=== PATIENT | female | born 1995 | race Caucasian/White ===

== ENCOUNTER 2017-05-08 22:39 | Emergency (ER) | END 2017-05-09 03:26 | disposition left against medical advice (07) ==

== ENCOUNTER 2018-01-12 23:55 | Outpatient (CLI) | END 2018-01-13 06:22 | disposition home or self-care (01) ==

== ENCOUNTER 2018-07-17 22:07 | Emergency (ER) | payer OTHER ==
[~2018-07-17] VITALS: Wt 86.5 kg
[2018-07-17 22:11] VITALS: BP 126/65; PULSE 89; RESP 19
--- NOTE | 2018-07-17 22:52 | ERD ---
ER Documentation Chief Complaint Chief Complaint BIB SELF, CC: LEFT BREAST REDNESS AND RASH / BUG BITE HPI 23-year-old female presents with complaint of itchiness on her left breast. States that she was breast-feeding her child when she felt a sting and she thinks some type of bug bit her but she is unsure exactly what kind. Denies any pain. Has not taken any treatments. Denies fevers, abdominal pain, nausea, vomiting, diarrhea. Denies past medical history. Denies allergies. Denies medications. Denies surgeries. Denies alcohol, tobacco, drug use. Up to date on vaccines. ROS All systems reviewed and are negative except as per history of present illness. Medications Home Meds No Active Prescriptions or Reported Meds Allergies Allergies: Coded Allergies: No Known Allergy (Unverified , 01/13/18) FmHx Family History: No diabetes, No coronary disease, No other Physical Exam Vitals Vital Signs Date Temp Pulse Resp B/P (MAP) Pulse Ox O2 O2 Flow FiO2 Time Delivery Rate 07/17/18 98.3 89 19 126/65 100 22:11 (85) Physical Exam Const: No acute distress Head: Atraumatic Eyes: Normal Conjunctiva ENT: Normal External Ears, Nose and Mouth. Neck: Full range of motion. No meningismus. Resp: Clear to auscultation bilaterally Cardio: Regular rate and rhythm, no murmurs Abd: Soft, non tender, non distended. Normal bowel sounds Skin: Small area of mild erythema noted over left breast with no tenderness to palpation or masses noted. Back: No midline or flank tenderness Ext: No cyanosis, or edema Neur: Awake and alert Psych: Normal Mood and Affect Procedures/MDM 23-year-old female presents with complaint of itchiness on her left breast. States that she was breast-feeding her child when she felt a sting and she thinks some type of bug bit her but she is unsure exactly what kind. Denies any pain. Has not taken any treatments. Denies fevers, abdominal pain, nausea, vomiting, diarrhea. Denies past medical history. Denies allergies. Denies medications. Denies surgeries. Denies alcohol, tobacco, drug use. Up to date on vaccines. Low suspicion for allergic reaction, anaphylaxis, breast abscess, infection, or other emergent condition. Patient was offered Benadryl but declined.. Patient discharged with strict ER precautions. Patient advised to follow up with PMD. All questions answered at discharge. Departure Diagnosis: Primary Impression: Bug bite Encounter type: initial encounter Qualified Codes: W57.XXXA - Bitten or stung by nonvenomous insect and other nonvenomous arthropods, initial encounter Condition: Alexis DISLASIERRAMILANA Jul 17, 2018 22:51
== END 2018-07-17 23:31 | disposition home or self-care (01) ==
LOC: FTE 22:07
DX: S20.162A Insect bite (nonvenomous) of breast, left breast, initial encounter (principal); W57.XXXA Bitten or stung by nonvenomous insect and other nonvenomous arthropods, initial encounter; Y92.9 Unspecified place or not applicable
CPT/HCPCS: 99282